=== PATIENT | female | born 1995 | race Caucasian/White ===

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

== ENCOUNTER 2017-08-01 22:30 | Emergency (ER) | payer OTHER ==
[~2017-08-01] VITALS: Ht 175.3 cm; Wt 71.6 kg
[~2017-08-01 22:30] MED LIST changes: -CEFU1TAB20 PO; -FERR325T8 PO; +MEDR150I IM; -PREN1TAB45 PO
[2017-08-01 22:32] VITALS: BP 121/75; PULSE 127; RESP 18; TEMP 102.5; O2SAT 96
[2017-08-01 23:15] LABS: BILIRUBIN, URINE NEG (NEG); BLOOD, URINE TRACE (NEG); GLUCOSE,URINE NEG (NEG); KETONE, URINE NEG (NEG); NITRITE,URINE NEG (NEG); PH, URINE 6.5 (5.0-8.5); URINE COLOR YELLOW (YELLW/STRAW); URINE LEUKOCYTE ESTERASE TRACE (NEG)
[2017-08-01 23:22] LABS: BACTERIA, URINE MOD /hpf; RBC, URINE 0-3 /hpf (0-3); SQUAMOUS EPITHELIAL CELL URINE 0-5 /hpf (0-5); WHITE BLOOD CELL CLUMPS FEW
[2017-08-01 23:45] VITALS: BP 106/60; PULSE 112; RESP 18; O2SAT 98
[2017-08-02 00:45] VITALS: BP 112/55; PULSE 120; RESP 18; O2SAT 98
--- NOTE | 2017-08-02 01:11 | PD ---
HPI Chief Complaint: Flank/Kidney Pain Time Seen by Provider: 01:05 Travel History International Travel<30 days: No Contact w/Intl Traveler<30days: No Traveled to known affect area: No History of Present Illness HPI The patient is a 22-year-old female that complains of pain in bilateral flanks and suprapubic area along with nausea without vomiting for 4 days. She has had a fever at home. She is not nauseated now. She is nursing. Her pain is both sharp and dull pain. She does have frequency of urination but no dysuria. PFS Past Medical History Medical History: Denies Significant Hx Asthma: Yes Diminished Hearing: No Gastrointestinal Disorders: Yes (EVALUATED FOR STOMACH ULCER) GERD: Yes Reproductive: Yes (PAINFUL HEAVY PERIODS) Immunizations Current: Yes Migraines: Yes Influenza Vaccination: No ?: Not LMP: 4 MONTHS AGO Past Surgical History Surgical History: No Previous Surgery Abdominal Surgery: Yes (ENDOSCOPY) Oral Surgery: Yes Social History Alcohol Use: No Tobacco Use: No Substance Use: No (hx of smoking pot) Allergies-Medications (Allergen,Severity, Reaction): Coded Allergies: No Known Allergies (Verified Adverse Reaction, Unknown, 08/01/17) Reported Meds & Prescriptions Reported Meds & Active Scripts Active Reported Medroxyprogesterone Inj 150 Mg/Ml Inj 150 Mg IM Q90D Review of Systems Except as stated in HPI: all other systems reviewed are Neg Physical Exam Narrative GENERAL: The patient is alert, oriented 3 in moderate apparent distress with her bilateral flank pain and suprapubic discomfort. Her vital signs show temperature 102.5 with a heart rate of 127. SKIN: Focused skin assessment warm/dry. No skin rash is present. HEAD: Atraumatic. Normocephalic. EYES: Pupils equal and round. No scleral icterus. No injection or drainage. ENT: No nasal bleeding or discharge. Mucous membranes pink and moist. NECK: Trachea midline. No JVD. CARDIOVASCULAR: Regular rate and rhythm. No murmur appreciated. RESPIRATORY: No accessory muscle use. Clear to auscultation. Breath sounds equal bilaterally. GASTROINTESTINAL: Abdomen soft, with tenderness on both flanks to direct palpation, nondistended. Hepatic and splenic margins not palpable. No guarding or rebound is present. MUSCULOSKELETAL: No obvious deformities. No clubbing. No cyanosis. No edema. NEUROLOGICAL: Awake and alert. No obvious cranial nerve deficits. Motor grossly within normal limits. Normal speech. PSYCHIATRIC: Appropriate mood and affect; insight and judgment normal. Data Data Last Documented VS Vital Signs Date Time Temp Pulse Resp B/P (MAP) Pulse Ox O2 Delivery O2 Flow Rate FiO2 08/02/17 01:46 120 18 108/73 (85) 95 Room Air 08/01/17 22:32 102.5 Orders Orders Urinalysis - C+S If Indicated (08/01/17 22:57) Ed Urine Pregnancytest Poc (08/01/17 22:57) Urine Culture (08/01/17 22:40) Sepsis Workup Initiated (08/02/17 ) Complete Blood Count With Diff (08/02/17 01:11) Comprehensive Metabolic Panel (08/02/17 01:11) Lactic Acid Sepsis Protocol (08/02/17 01:11) Blood Culture (08/02/17 01:11) Chest, Pa & Lat (08/02/17 01:11) Blood Glucose (08/02/17 01:11) Ecg Monitoring (08/02/17 01:11) Iv Access Insert/Monitor (08/02/17 01:11) Oximetry (08/02/17 01:11) Oxygen Administration (08/02/17 01:11) Labs Laboratory Tests Test 08/01/17 22:40 08/02/17 01:30 Urine Color YELLOW Urine Turbidity CLEAR Urine pH 6.5 Urine Specific [place] LESS/EQUAL 1.005 Urine Protein TRACE mg/dL Urine Glucose (UA) NEG mg/dL Urine Ketones NEG mg/dL Urine Occult Blood TRACE Urine Nitrite NEG Urine Bilirubin NEG Urine Urobilinogen 0.2 MG/DL Urine Leukocyte Esterase TRACE Urine RBC 0-3 /hpf Urine WBC 20-24 /hpf Urine WBC Clumps FEW Urine Squamous Epithelial Cells 0-5 /hpf Urine Bacteria MOD /hpf Microscopic Urinalysis Comment CULTURE INDICATED White Blood Count 8.5 TH/MM3 Red Blood Count 4.21 MIL/MM3 Hemoglobin 12.0 GM/DL Hematocrit 35.5 % Mean Corpuscular Volume 84.3 FL Mean Corpuscular Hemoglobin 28.5 PG Mean Corpuscular Hemoglobin Concent 33.8 % Red Cell Distribution Width 13.8 % Platelet Count 185 TH/MM3 Mean Platelet Volume 8.6 FL Neutrophils (%) (Auto) 70.6 % Lymphocytes (%) (Auto) 17.0 % Monocytes (%) (Auto) 11.5 % Eosinophils (%) (Auto) 0.4 % Basophils (%) (Auto) 0.5 % Neutrophils # (Auto) 6.1 TH/MM3 Lymphocytes # (Auto) 1.4 TH/MM3 Monocytes # (Auto) 1.0 TH/MM3 Eosinophils # (Auto) 0.0 TH/MM3 Basophils # (Auto) 0.0 TH/MM3 CBC Comment DIFF FINAL Differential Comment Blood Urea Nitrogen 13 MG/DL Creatinine 0.85 MG/DL Random Glucose 89 MG/DL Total Protein 7.5 GM/DL Albumin 4.0 GM/DL Calcium Level 9.0 MG/DL Alkaline Phosphatase 85 U/L Aspartate Amino Transf (AST/SGOT) 24 U/L Alanine Aminotransferase (ALT/SGPT) 37 U/L Total Bilirubin 0.6 MG/DL Sodium Level 136 MEQ/L Potassium Level 3.7 MEQ/L Chloride Level 102 MEQ/L Carbon Dioxide Level 26.1 MEQ/L Anion Gap 8 MEQ/L Estimat Glomerular Filtration Rate 85 ML/MIN Lactic Acid Level 0.6 mmol/L [facility] Medical Decision Making Medical Screen Exam Complete: Yes Emergency Medical Condition: Yes Medical Record Reviewed: Yes Interpretation(s) The CBC is normal with a white count of 8500. The basic metabolic profile is normal and the total bilirubin is normal and the lactic acid is normal. The urinalysis shows moderate bacteria with 20 224 white cells and few white cell clampings and moderate bacteria in the urine and culture is indicated. Differential Diagnosis Sepsis, urosepsis, pyelonephritis, cystitis, electrolyte disorder, anemia, breast-feeding patient Narrative Course The patient has pyelonephritis. The patient is given IV Rocephin and a prescription for Keflex. She was offered admission but declined because she has to breast-feed and take care of her children at home. This seems reasonable as long as the patient will return if she does not get better. She needs to increase her liquid intake. Diagnosis Primary Impression: Pyelonephritis Additional Impression: Cystitis Additional Instructions: The Keflex is 1 tablet 3 times a day for 10 days. If you do not get better or if you get worse he should return to emergency department for reevaluation. Drink plenty of liquids because you need to establish a good urine flow through your kidneys. Med/Other Pt SpecificInfo: Prescription(s) given Scripts Cephalexin (Keflex) 500 Mg Capsule 500 MG PO TID for Infection for 10 Days, CAP 0 Refills Prov: Abhishek Haas MD 08/02/17 Disposition: 01 DISCHARGE HOME Condition: Stable Abhishek Haas MD Aug 02, 2017 01:11
[2017-08-02 01:46] VITALS: BP 108/73; PULSE 120; RESP 18; O2SAT 95
[2017-08-02 01:53] LABS: AUTOMATED NEUTROPHIL # 6.1 TH/MM3 (1.8-7.7); BASOPHIL % 0.5 % (0.0-2.0); EOSINOPHIL % 0.4 % (0.0-4.0); HEMATOCRIT 35.5 % (35.0-46.0); LYMPHOCYTE # 1.4 TH/MM3 (1.0-4.8); MEAN CELL VOLUME 84.3 FL (80.0-100.0); MEAN CORPUSCULAR HEMOGLOBIN 28.5 PG (27.0-34.0); MEAN CORPUSCULAR HGB CONC 33.8 % (32.0-36.0); MEAN PLATELET VOLUME 8.6 FL (7.0-11.0); MONO % 11.5 % (0.0-8.0); NEUT % 70.6 % (16.0-70.0); PLATELET COUNT 185 TH/MM3 (150-450); RED BLOOD COUNT 4.21 MIL/MM3 (4.00-5.30); RED CELL DISTRIBUTION WIDTH 13.8 % (11.6-17.2); WHITE BLOOD COUNT 8.5 TH/MM3 (4.0-11.0)
--- NOTE | 2017-08-02 01:57 | RADRPT ---
EXAM DATE: 08/02/2017 1:48 AM EDT AGE/SEX: 22 years / Female INDICATIONS: Fever. Weakness. CLINICAL DATA: This is the patient's initial encounter. Patient reports that signs and symptoms have been present for 2 days and indicates a pain score of 5/10. MEDICAL/SURGICAL HISTORY: None. None. COMPARISON: No prior exams available for comparison. FINDINGS: PA and lateral views of the chest demonstrate the lungs to be symmetrically aerated without evidence of mass, infiltrate or effusion. The cardiomediastinal contours are unremarkable. Osseous structures are intact. CONCLUSION: No acute cardiopulmonary disease. Electronically signed by: Lewis Cespedes MD 08/02/2017 1:56 AM EDT
[2017-08-02 01:59] LABS: CHLORIDE 102 MEQ/L (98-107); SODIUM (NA) 136 MEQ/L (136-145)
[2017-08-02 02:02] LABS: BICARBONATE 26.1 MEQ/L (21.0-32.0); GLUCOSE,RANDOM 89 MG/DL (74-106)
[2017-08-02 02:03] LABS: BLOOD UREA NITROGEN 13 MG/DL (7-18)
[2017-08-02 02:05] LABS: ALT (GPT) 37 U/L (9-42); AST (GOT) 24 U/L (16-38)
[2017-08-02 02:06] LABS: CREATININE 0.85 MG/DL (0.50-1.00); GLOMERULAR FILTRATION RATE 85 ML/MIN (>89)
[2017-08-02 02:07] LABS: TOTAL BILIRUBIN ADULT 0.6 MG/DL (0.2-1.0); TOTAL PROTEIN 7.5 GM/DL (6.4-8.2)
[2017-08-02 02:08] LABS: ALKALINE PHOSPHATASE 85 U/L (45-117)
[2017-08-02] MEDS ORDERED: CEPH-460 PO (02:40)
[2017-08-02] MEDS ORDERED: cefTRIAXone INJ 1,000 MG in SODIUM CHLORIDE 0.9% INJ 100 ML IV ONE (02:45)
[2017-08-02 02:46] VITALS: BP 115/65; PULSE 102; RESP 18; O2SAT 96
[2017-08-02 03:38] VITALS: BP 110/68
== END 2017-08-02 03:41 | disposition home or self-care (01) ==
LOC: PHED 22:30
DX: N12 Tubulo-interstitial nephritis, not specified as acute or chronic (principal); N30.90 Cystitis, unspecified without hematuria; B96.20 Unspecified Escherichia coli [E. coli] as the cause of diseases classified elsewhere; J45.909 Unspecified asthma, uncomplicated; K21.9 Gastro-esophageal reflux disease without esophagitis; Z79.899 Other long term (current) drug therapy
CPT/HCPCS: 71046; 80053; 81001; 83605; 84703; 85025; 87040; 87077; 87086; 87186; 87205; 96365; 99284; J0696